=== PATIENT | female | born 1940 | race Caucasian/White ===

== ENCOUNTER 2017-02-13 08:53 | Inpatient (IN) | payer OTHER, BC ==
[2017-02-13] VITALS: BP 121/58
[~2017-02-13] VITALS: Ht 154.9 cm; Wt 82.6 kg
[~2017-02-13 08:53] MED LIST: ARTHROTEC 751 TABLET PO; ASCORBIC ACID500 M3 PO; Aspirin E.C. PO; BACLOFEN10 MG PO; CITRACAL D + H1 EACH PO; CITRACAL PLUS1 EAC1 PO; CYTOTEC200 MCG PO; Citracal Maximum (Ca PO; Cytotec PO; DOCUPRENE100 MG PO; DURAGESIC12 MCG TD; FLONASE16 G1 BOTH NARES; FOLIC ACID1 MG PO; FOSAMAX40 MG PO; HEPARIN SO5000 UNITS SC; MIRALAX17 GM PO; Mag-Ox PO; NEURONTIN600 MG PO; NIFEDIPINE ER60 MG PO; NON-ASPIRIN EX500 MG PO; NORCO 7.5/321 TABLET PO; OXAYDO5 MG PO; OxyCONTIN PO; PRILOSEC40 MG PO; PROTONIX40 MG PO; Percocet 7.5/325,End PO; SENNA8.6 MG PO; SYNTHROID125 MCG PO; SYNTHROID137 MCG PO; THERAGRAN1 TABLET PO; Theragran PO; ULTRAM50 MG PO; Ultram PO; VICODIN 5-5001 EACH PO; VITAMIN B COMP1 EACH PO; VITAMIN D2000 UNIT PO; VYTORIN 10-201 EACH PO; Valium PO; Voltaren PO; ZANAFLEX4 MG PO; Zocor PO
[2017-02-13 16:38] VITALS: BP 130/60
[2017-02-13] MEDS ORDERED: TYLENOL REGULA325 MG PO (16:58)
[2017-02-13] MEDS ORDERED: FLEXERIL5 MG PO (17:00)
[2017-02-13] MEDS ORDERED: NEURONTIN100 MG PO (17:01)
[2017-02-13] MEDS ORDERED: MICROZIDE12.5 M1 PO (17:02)
[2017-02-13] MEDS ORDERED: HEPARIN SO5000 UNITS SC (17:02)
[2017-02-13] MEDS ORDERED: ROXICODONE5 MG PO (17:03)
[2017-02-13] MEDS ORDERED: LO-DOSE ASPIRIN81 M2 PO (17:05)
[2017-02-13] MEDS ORDERED: VITAMIN B122500 MCG SL (17:07)
[2017-02-13] MEDS ORDERED: HYZAAR 50-121 TABLET PO (17:08)
[2017-02-13] MEDS ORDERED: CYTOTEC200 MCG PO (17:10)
[2017-02-13] MEDS ORDERED: THERATRUM COMP1 EAC1 PO (17:12)
[2017-02-13] MEDS ORDERED: RESTASIS 01 DROP/0.4 BOTH EYES (17:13)
[2017-02-13] MEDS ORDERED: WOMEN'S LAXATIVE5 M1 PO (17:58)
[2017-02-13] MEDS ORDERED: NOVOLOG PE100 UNITS/ SC (18:05)
[2017-02-13 22:23] LABS: POINT-OF-CARE METER ID UU14174215
[2017-02-14 04:49] VITALS: BP 152/65
[2017-02-14 06:00] LABS: HEMATOCRIT 23.3 % (36.0-46.0); MCH 29.2 PG (29.0-34.0); MCHC 32.6 G/DL (30.0-36.0); MCV 89.6 FL (83-99); MEAN PLAT.VOLUME 9.5 uM^3 (9.5-12.4); PLATELET COUNT 313 K/uL (156-360); RBC DIS.WIDTH-CV 14.7 % (11.8-14.6); WHITE BLOOD COUNT 5.8 K/uL (4.1-10.2)
[2017-02-14 06:57] LABS: ALKALINE PHOSPHATASE 73 IU/L (3-129); ANION GAP 9 MEQ/L (2-14); CHLORIDE 97 MEQ/L (99-109); GFR ESTIMATE (CALCULATED) > 59 mL/min/; GLUCOSE 112 mg/dL (70-99); POTASSIUM 3.8 MEQ/L (3.7-5.4); SAMPLE HEMOLYSIS CHECK 0; SAMPLE ICTERIC CHECK 0; SAMPLE LIPEMIA CHECK 0; SODIUM 136 MEQ/L (136-147); TOTAL BILIRUBIN 0.4 MG/DL (0.0-1.0); UREA NITROGEN (BUN) 8 mg/dL (9-23)
[2017-02-14 07:52] LABS: POINT-OF-CARE METER ID UU14174215
[2017-02-14 11:13] LABS: POINT-OF-CARE METER ID UU14174215
[2017-02-14 15:10] VITALS: BP 117/53; BP 121/68
[2017-02-14 16:16] LABS: POINT-OF-CARE METER ID UU14174215
[2017-02-14 21:08] LABS: POINT-OF-CARE METER ID UU14174215
[2017-02-15 06:07] VITALS: BP 119/56
[2017-02-15 06:40] LABS: POINT-OF-CARE METER ID UU14174215; POINT-OF-CARE USER ID ENVGAF
[2017-02-15 11:12] LABS: POINT-OF-CARE METER ID UU14174215
[2017-02-15 12:09] LABS: HEMATOCRIT 27.5 % (36.0-46.0); MCH 28.8 PG (29.0-34.0); MCV 89.9 FL (83-99); MEAN PLAT.VOLUME 9.1 uM^3 (9.5-12.4); PLATELET COUNT 405 K/uL (156-360); RED BLOOD COUNT 3.06 M/uL (3.80-5.20)
[2017-02-15 15:02] VITALS: BP 134/65
[2017-02-15 16:17] LABS: POINT-OF-CARE METER ID UU14174215
[2017-02-15 21:24] LABS: POINT-OF-CARE METER ID UU13113720
[2017-02-16 05:33] VITALS: BP 113/55
[2017-02-16 06:47] LABS: POINT-OF-CARE METER ID UU14174215; POINT-OF-CARE USER ID ENVGAF
[2017-02-16 07:04] LABS: HEMATOCRIT 24.8 % (36.0-46.0); MCH 28.9 PG (29.0-34.0); MCHC 31.9 G/DL (30.0-36.0); MCV 90.8 FL (83-99); MEAN PLAT.VOLUME 9.4 uM^3 (9.5-12.4); PLATELET COUNT 414 K/uL (156-360); RBC DIS.WIDTH-CV 14.8 % (11.8-14.6); RBC DIS.WIDTH-SD 48.6 % (39-53); RED BLOOD COUNT 2.73 M/uL (3.80-5.20)
[2017-02-16 11:18] LABS: POINT-OF-CARE METER ID UU14174215
[2017-02-16 15:16] VITALS: BP 105/57
[2017-02-16 16:14] LABS: POINT-OF-CARE METER ID UU14174215
[2017-02-16 21:24] LABS: POINT-OF-CARE METER ID UU14174215
[2017-02-17 04:36] VITALS: BP 116/58
[2017-02-17 07:14] LABS: POINT-OF-CARE METER ID UU14174215
[2017-02-17 11:46] LABS: POINT-OF-CARE METER ID UU14174215
[2017-02-17 15:36] VITALS: BP 125/60
[2017-02-17 16:38] LABS: POINT-OF-CARE METER ID UU13113720
[2017-02-17 21:14] LABS: POINT-OF-CARE METER ID UU13113720
[2017-02-18] VITALS: BP 127/61
[2017-02-18 04:37] VITALS: BP 104/56
[2017-02-18 07:25] LABS: POINT-OF-CARE METER ID UU13113720
[2017-02-18 11:19] LABS: POINT-OF-CARE METER ID UU13113720; POINT-OF-CARE USER ID AHSSSJB31
[2017-02-18 15:00] VITALS: BP 110/59
[2017-02-18 16:35] LABS: POINT-OF-CARE METER ID UU13113720
[2017-02-18 21:27] LABS: POINT-OF-CARE METER ID UU13113720
[2017-02-19 06:11] VITALS: BP 111/55
[2017-02-19 06:45] LABS: HEMATOCRIT 26.3 % (36.0-46.0); MCH 28.6 PG (29.0-34.0); MCHC 31.2 G/DL (30.0-36.0); MCV 91.6 FL (83-99); MEAN PLAT.VOLUME 8.8 uM^3 (9.5-12.4); PLATELET COUNT 506 K/uL (156-360); RBC DIS.WIDTH-CV 15.1 % (11.8-14.6); RBC DIS.WIDTH-SD 48.2 % (39-53); RED BLOOD COUNT 2.87 M/uL (3.80-5.20); WHITE BLOOD COUNT 6.1 K/uL (4.1-10.2)
[2017-02-19 07:07] LABS: POINT-OF-CARE METER ID UU13113720
[2017-02-19 07:17] LABS: ANION GAP 11 MEQ/L (2-14); CHLORIDE 100 MEQ/L (99-109); GFR ESTIMATE (CALCULATED) > 59 mL/min/; GLUCOSE 98 mg/dL (70-99); POTASSIUM 4.3 MEQ/L (3.7-5.4); SAMPLE HEMOLYSIS CHECK 0; SAMPLE ICTERIC CHECK 0; SAMPLE LIPEMIA CHECK 0; SODIUM 139 MEQ/L (136-147); UREA NITROGEN (BUN) 11 mg/dL (9-23)
[2017-02-19 11:17] LABS: POINT-OF-CARE METER ID UU13113720
[2017-02-19] MEDS ORDERED: ZOCOR40 MG PO (11:50)
[2017-02-19 15:23] VITALS: BP 109/53
[2017-02-20 05:04] VITALS: BP 114/57
[2017-02-20 15:21] VITALS: BP 113/75; BP 116/61
[2017-02-21 05:32] VITALS: BP 120/58
[2017-02-21 06:02] LABS: HEMATOCRIT 26.5 % (36.0-46.0); MCH 29.5 PG (29.0-34.0); MCHC 31.7 G/DL (30.0-36.0); MEAN PLAT.VOLUME 8.9 uM^3 (9.5-12.4); PLATELET COUNT 528 K/uL (156-360); RBC DIS.WIDTH-CV 15.7 % (11.8-14.6); RBC DIS.WIDTH-SD 50.8 % (39-53); RED BLOOD COUNT 2.85 M/uL (3.80-5.20)
[2017-02-21 06:50] LABS: ANION GAP 9 MEQ/L (2-14); CHLORIDE 98 MEQ/L (99-109); GFR ESTIMATE (CALCULATED) > 59 mL/min/; GLUCOSE 103 mg/dL (70-99); POTASSIUM 3.8 MEQ/L (3.7-5.4); SAMPLE HEMOLYSIS CHECK 0; SAMPLE ICTERIC CHECK 0; SAMPLE LIPEMIA CHECK 0; SODIUM 136 MEQ/L (136-147); UREA NITROGEN (BUN) 14 mg/dL (9-23)
[2017-02-21] MEDS ORDERED: FOLIC ACID1 MG PO (09:00)
[2017-02-21] MEDS ORDERED: FERROUS SULFAT325 MG PO (09:00)
[2017-02-21] MEDS ORDERED: BACLOFEN10 MG PO (09:00)
[2017-02-21] MEDS ORDERED: LIDOCAINE700 MG TD (09:00)
[2017-02-21] MEDS ORDERED: ROXICODONE5 MG PO (09:00)
[2017-02-21] MEDS ORDERED: NEURONTIN100 MG PO (09:00)
[2017-02-21] MEDS ORDERED: Chronulac,Cephulac,E PO (09:00)
== END 2017-02-21 14:16 | disposition home health service (06) | DRG 949 ==
LOC: 3WEST 08:53
PROVIDERS: Physical Medicine & Rehabilitation Pain Medicine
PROC: F07M0ZZ Range of Motion and Joint Mobility Treatment of Musculoskeletal System - Whole Body (ICD-10-PCS; principal; 2017-02-13)
DX: Z48.89 Encounter for other specified surgical aftercare (principal); I10 Essential (primary) hypertension; E78.5 Hyperlipidemia, unspecified; E03.9 Hypothyroidism, unspecified; K21.9 Gastro-esophageal reflux disease without esophagitis; G89.4 Chronic pain syndrome; Z98.1 Arthrodesis status; M81.0 Age-related osteoporosis without current pathological fracture; H91.90 Unspecified hearing loss, unspecified ear; D62 Acute posthemorrhagic anemia; K57.90 Diverticulosis of intestine, part unspecified, without perforation or abscess without bleeding; M19.90 Unspecified osteoarthritis, unspecified site; R53.1 Weakness; M48.04 Spinal stenosis, thoracic region; Z96.652 Presence of left artificial knee joint; G89.18 Other acute postprocedural pain; G56.00 Carpal tunnel syndrome, unspecified upper limb
CPT/HCPCS: 80048; 80053; 82948; 85027; 86900; 86901; 86920; 97110 GO; 97530 GP; J1644; J1815

== ENCOUNTER → 2017-08-19 | Outpatient (CLI) | payer OTHER, BC ==
[~2017-08-19] MED LIST changes: +Chronulac,Cephulac,E PO; +FERROUS SULFAT325 MG PO; +FLEXERIL5 MG PO; +HYZAAR 50-121 TABLET PO; +LIDOCAINE700 MG TD; +LO-DOSE ASPIRIN81 M2 PO; +MICROZIDE12.5 M1 PO; +NEURONTIN100 MG PO; +NOVOLOG PE100 UNITS/ SC; +RESTASIS 01 DROP/0.4 BOTH EYES; +ROXICODONE5 MG PO; +THERATRUM COMP1 EAC1 PO; +TYLENOL REGULA325 MG PO; +VITAMIN B122500 MCG SL; +WOMEN'S LAXATIVE5 M1 PO; +ZOCOR40 MG PO
== END | disposition home or self-care (01) ==
DX: R26.2 Difficulty in walking, not elsewhere classified (principal); M25.561 Pain in right knee; M25.661 Stiffness of right knee, not elsewhere classified; M62.81 Muscle weakness (generalized); M17.11 Unilateral primary osteoarthritis, right knee
CPT/HCPCS: 97161 GP; 97530 GP; G8978 GP; G8979 GP; G8980 GP

== ENCOUNTER 2017-10-05 22:03 | Inpatient (IN) | payer OTHER, BC ==
[~2017-10-05] VITALS: Ht 154.9 cm; Wt 76.2 kg
[~2017-10-05 22:03] MED LIST changes: +CITRACAL-VIT D1 EACH PO; +LIORESAL10 MG PO; +NEURONTIN300 MG PO; +PRILOSEC20 MG PO; -PRILOSEC40 MG PO; +VICODIN 5-3001 EACH PO; +VOLTAREN75 MG PO
[2017-10-06 10:04] VITALS: BP 148/67
[2017-10-06 14:28] LABS: HEMATOCRIT 34.3 % (36.0-46.0); MCH 30.6 PG (29.0-34.0); MCHC 32.1 G/DL (30.0-36.0); MCV 95.5 FL (83-99); RBC DIS.WIDTH-CV 12.6 % (11.8-14.6); RBC DIS.WIDTH-SD 44.2 % (39-53); RED BLOOD COUNT 3.59 M/uL (3.80-5.20); WHITE BLOOD COUNT 5.2 K/uL (4.1-10.2)
[2017-10-06 14:35] LABS: PLATELET COUNT 206 K/uL (156-360)
[2017-10-06 16:23] VITALS: BP 117/59
[2017-10-06 19:52] VITALS: BP 137/68
[2017-10-07 00:08] VITALS: BP 132/62
[2017-10-07 04:00] VITALS: BP 165/63
[2017-10-07 06:05] LABS: HEMOGLOBIN 10.9 G/DL (11.9-15.5); MCV 93.7 FL (83-99)
[2017-10-07 06:27] LABS: CHLORIDE 100 MEQ/L (99-109); CREATININE 0.7 MG/DL (0.6-1.3); GFR ESTIMATE (CALCULATED) > 59 mL/min/; GLUCOSE 163 mg/dL (70-99); POTASSIUM 3.8 MEQ/L (3.7-5.4); SODIUM 135 MEQ/L (136-147); UREA NITROGEN (BUN) 16 mg/dL (9-23)
[2017-10-07 07:33] VITALS: BP 142/61
[2017-10-07 11:32] VITALS: BP 120/66
[2017-10-07 15:39] VITALS: BP 125/60
[2017-10-07 20:01] VITALS: BP 142/67
[2017-10-08] VITALS: BP 140/67
[2017-10-08 04:02] VITALS: BP 115/56
[2017-10-08 07:01] LABS: HEMATOCRIT 28.1 % (36.0-46.0); HEMOGLOBIN 9.4 G/DL (11.9-15.5); MCV 92.7 FL (83-99)
[2017-10-08 08:00] VITALS: BP 120/56
[2017-10-08] MEDS ORDERED: LOVENOX40 MG/0.4 SC (09:03)
[2017-10-08] MEDS ORDERED: ENDOCET 5-3251 EACH PO (09:03)
[2017-10-08] MEDS ORDERED: SENNA PLUS TAB1 EACH PO (09:03)
[2017-10-08 12:00] VITALS: BP 136/86
[2017-10-08 12:29] VITALS: BP 149/67
== END 2017-10-08 16:10 | DRG 470 ==
LOC: ENRESERV 22:03 → 2SOUTH 10-06 09:08 → 3WEST 10-06 16:05
PROVIDERS: Orthopaedic Surgery
PROC: 0SRC0J9 Replacement of Right Knee Joint with Synthetic Substitute, Cemented, Open Approach (ICD-10-PCS; principal; 2017-10-06)
DX: M17.11 Unilateral primary osteoarthritis, right knee (principal); D62 Acute posthemorrhagic anemia; E78.5 Hyperlipidemia, unspecified; I10 Essential (primary) hypertension; K21.9 Gastro-esophageal reflux disease without esophagitis; G89.29 Other chronic pain; M54.9 Dorsalgia, unspecified; H91.93 Unspecified hearing loss, bilateral; E03.9 Hypothyroidism, unspecified; K40.90 Unilateral inguinal hernia, without obstruction or gangrene, not specified as recurrent; Z98.1 Arthrodesis status; Z83.3 Family history of diabetes mellitus; Z82.49 Family history of ischemic heart disease and other diseases of the circulatory system
CPT/HCPCS: 73560; 80048; 85014; 85018; 85027; C1713; C1762; J0690; J1100; J1170; J1650; J2250; J2405; J2795; J7030; J7050; Q0175

== ENCOUNTER 2018-01-25 22:00 | Inpatient (IN) | payer OTHER, BC ==
[~2018-01-25] VITALS: Ht 152.4 cm; Wt 78.4 kg
[~2018-01-25 22:00] MED LIST changes: +ENDOCET 5-3251 EACH PO; +LOVENOX40 MG/0.4 SC; +SENNA PLUS TAB1 EACH PO
[2018-01-26 07:40] VITALS: BP 117/88
[2018-01-26 13:28] LABS: HEMATOCRIT 34.6 % (36.0-46.0); HEMOGLOBIN 11.4 G/DL (11.9-15.5); MCH 30.2 PG (29.0-34.0); MCHC 32.9 G/DL (30.0-36.0); MCV 91.8 FL (83-99); PLATELET COUNT 193 K/uL (156-360); RBC DIS.WIDTH-CV 12.8 % (11.8-14.6); RBC DIS.WIDTH-SD 42.8 % (39-53); RED BLOOD COUNT 3.77 M/uL (3.80-5.20); WHITE BLOOD COUNT 4.5 K/uL (4.1-10.2)
[2018-01-26 15:15] VITALS: BP 118/52
[2018-01-26 19:40] VITALS: BP 105/63
[2018-01-27 00:10] VITALS: BP 125/72
[2018-01-27 03:58] VITALS: BP 124/59
[2018-01-27 05:31] LABS: HEMOGLOBIN 10.3 G/DL (11.9-15.5); MCV 90.9 FL (83-99)
[2018-01-27 05:58] LABS: CHLORIDE 106 MEQ/L (99-109); CREATININE 0.8 MG/DL (0.6-1.3); GFR ESTIMATE (CALCULATED) > 59 mL/min/; GLUCOSE 129 mg/dL (70-99); SODIUM 140 MEQ/L (136-147); UREA NITROGEN (BUN) 16 mg/dL (9-23)
[2018-01-27 08:02] VITALS: BP 129/60
[2018-01-27 12:09] VITALS: BP 140/67
[2018-01-27 15:42] VITALS: BP 150/60
[2018-01-27 20:16] VITALS: BP 137/70
[2018-01-28 00:07] VITALS: BP 169/72
[2018-01-28 04:16] VITALS: BP 136/68
[2018-01-28 07:28] LABS: HEMATOCRIT 31.1 % (36.0-46.0); HEMOGLOBIN 10.2 G/DL (11.9-15.5); MCV 90.4 FL (83-99)
[2018-01-28 08:22] VITALS: BP 146/73
[2018-01-28] MEDS ORDERED: ENDOCET 5-3251 EACH PO (08:45)
[2018-01-28] MEDS ORDERED: LOVENOX40 MG/0.4 SC (08:45)
[2018-01-28] MEDS ORDERED: DOCUSATE SODIU100 MG PO (08:45)
[2018-01-28] MEDS ORDERED: CELECOXIB200 MG PO (08:45)
== END 2018-01-28 14:20 | DRG 468 ==
LOC: ENRESERV 22:00 → 2SOUTH 01-26 07:06 → ENRESERV 01-26 07:18 → 2SOUTH 01-26 08:46 → 3WEST 01-26 14:41 → 2SOUTH 01-26 14:56 → 3WEST 01-28 14:20
PROVIDERS: Orthopaedic Surgery
PROC: 0SPD0JZ Removal of Synthetic Substitute from Left Knee Joint, Open Approach (ICD-10-PCS; principal; 2018-01-26)
PROC: 0SRD0J9 Replacement of Left Knee Joint with Synthetic Substitute, Cemented, Open Approach (ICD-10-PCS; principal; 2018-01-26)
DX: T84.063A Wear of articular bearing surface of internal prosthetic left knee joint, initial encounter (principal); T84.093A Other mechanical complication of internal left knee prosthesis, initial encounter; Y83.1 Surgical operation with implant of artificial internal device as the cause of abnormal reaction of the patient, or of later complication, without mention of misadventure at the time of the procedure; Y79.2 Prosthetic and other implants, materials and accessory orthopedic devices associated with adverse incidents; M17.12 Unilateral primary osteoarthritis, left knee; I10 Essential (primary) hypertension; E78.5 Hyperlipidemia, unspecified; K21.9 Gastro-esophageal reflux disease without esophagitis; G89.29 Other chronic pain; M54.9 Dorsalgia, unspecified; M81.0 Age-related osteoporosis without current pathological fracture; E03.9 Hypothyroidism, unspecified; K44.9 Diaphragmatic hernia without obstruction or gangrene; Z85.828 Personal history of other malignant neoplasm of skin; Z96.651 Presence of right artificial knee joint; Z98.1 Arthrodesis status; Z83.3 Family history of diabetes mellitus
CPT/HCPCS: 73560; 80048; 85014; 85018; 85027; 86850; 86900; 86901; 94799; C1713; C1776; J0131; J0690; J1100; J1650; J1885; J2405; J2795; J3010; J7050; Q0175; S0020

== ENCOUNTER 2018-03-06 20:04 | Inpatient (IN) | payer OTHER, BC ==
[~2018-03-06] VITALS: Ht 154.9 cm; Wt 76.1 kg
[~2018-03-06 20:04] MED LIST changes: +CELECOXIB200 MG PO; +DOCUSATE SODIU100 MG PO
[2018-03-06 21:00] LABS: BASOPHIL (%) 0.3 % (0-1); EOSINOPHIL (%) 3.4 % (0-5); EOSINOPHIL COUNT 0.2 K/uL (0-0.3); HEMATOCRIT 32.9 % (36.0-46.0); IMMATURE GRANULOCYTE (%) 0.3 % (0.0-0.7); LYMPHOCYTE (%) 18.2 % (15-42); LYMPHOCYTE COUNT 1.3 K/uL (1.0-2.8); MCHC 33.4 G/DL (30.0-36.0); MCV 92.7 FL (83-99); MONOCYTE (%) 8.2 % (3-12); MONOCYTE COUNT 0.6 K/uL (0-0.8); NEUTROPHIL (%) 69.6 % (45-76); NEUTROPHIL COUNT 4.8 K/uL (1.8-6.4); PLATELET COUNT 207 K/uL (156-360); RBC DIS.WIDTH-CV 13.4 % (11.8-14.6); RBC DIS.WIDTH-SD 46.1 % (39-53); RED BLOOD COUNT 3.55 M/uL (3.80-5.20); WHITE BLOOD COUNT 6.9 K/uL (4.1-10.2)
[2018-03-06 21:12] LABS: CHLORIDE 104 mEq/L (99-109); POTASSIUM 3.8 mEq/L (3.7-5.4); SODIUM 139 mEq/L (136-147)
[2018-03-06 21:14] LABS: GLUCOSE 121 mg/dL (70-99)
[2018-03-06 21:18] LABS: CREATININE 0.9 mg/dL (0.6-1.3); GFR ESTIMATE (CALCULATED) > 59 mL/min/
[2018-03-06 21:19] LABS: UREA NITROGEN (BUN) 24 mg/dL (9-23)
[2018-03-06] MEDS ORDERED: LOVENOX40 MG/0.4 SC (22:06)
[2018-03-06] MEDS ORDERED: DICLOFENAC SODI75 MG PO (22:09)
[2018-03-06] MEDS ORDERED: VITAMIN B122500 MCG PO (22:10)
[2018-03-06] MEDS ORDERED: ASCORBIC ACID100 MG PO (22:10)
[2018-03-06] MEDS ORDERED: ULTRAM50 MG PO (22:10)
[2018-03-07 01:08] LABS: ERTH.SED.RATE 32 MM/HR (0-30)
[2018-03-07 01:42] LABS: C-REACTIVE PROTEIN 60.5 MG/L (0-10)
[2018-03-07 03:02] VITALS: BP 128/65
[2018-03-07 05:00] VITALS: BP 111/58
[2018-03-07 07:00] VITALS: BP 123/78
[2018-03-07 11:00] VITALS: BP 137/63
[2018-03-07 15:02] VITALS: BP 135/63
[2018-03-07 20:17] VITALS: BP 112/59
[2018-03-08 00:01] VITALS: BP 134/68
[2018-03-08 08:01] VITALS: BP 154/69
[2018-03-08 17:10] VITALS: BP 113/54
[2018-03-09 00:09] VITALS: BP 133/66
[2018-03-09 07:50] VITALS: BP 125/60
[2018-03-09 16:05] VITALS: BP 118/56
[2018-03-09 23:00] VITALS: BP 121/69
[2018-03-10 07:26] VITALS: BP 138/65
[2018-03-10 15:26] VITALS: BP 143/64
[2018-03-10 20:03] LABS: HEMATOCRIT 31.2 % (36.0-46.0); HEMOGLOBIN 9.7 G/DL (11.9-15.5); MCH 29.6 PG (29.0-34.0); MCHC 31.1 G/DL (30.0-36.0); MCV 95.1 FL (83-99); PLATELET COUNT 236 K/uL (156-360); RBC DIS.WIDTH-SD 45.1 % (39-53); RED BLOOD COUNT 3.28 M/uL (3.80-5.20); WHITE BLOOD COUNT 5.3 K/uL (4.1-10.2)
[2018-03-10 20:40] VITALS: BP 149/67
[2018-03-10 23:08] VITALS: BP 141/67
[2018-03-11 04:16] VITALS: BP 96/52
[2018-03-11 06:20] LABS: HEMATOCRIT 27.3 % (36.0-46.0); HEMOGLOBIN 8.8 G/DL (11.9-15.5); MCV 93.8 FL (83-99)
[2018-03-11 06:36] LABS: CHLORIDE 103 MEQ/L (99-109); CREATININE 0.6 MG/DL (0.6-1.3); GFR ESTIMATE (CALCULATED) > 59 mL/min/; GLUCOSE 116 mg/dL (70-99); POTASSIUM 3.6 MEQ/L (3.7-5.4); SODIUM 136 MEQ/L (136-147); UREA NITROGEN (BUN) 9 mg/dL (9-23)
[2018-03-11 07:16] VITALS: BP 103/52
[2018-03-11 11:28] VITALS: BP 118/57
[2018-03-11 15:39] VITALS: BP 112/59
[2018-03-11 23:45] VITALS: BP 126/57
[2018-03-12 07:01] LABS: HEMATOCRIT 28.1 % (36.0-46.0); HEMOGLOBIN 9.1 G/DL (11.9-15.5); MCV 94.3 FL (83-99)
[2018-03-12 08:27] VITALS: BP 121/61
[2018-03-12 16:28] VITALS: BP 111/53
[2018-03-12 23:48] VITALS: BP 115/56
[2018-03-13 07:37] VITALS: BP 117/65
[2018-03-13] MEDS ORDERED: DOCUSATE SODIU100 MG PO (08:26)
[2018-03-13] MEDS ORDERED: LOVENOX40 MG/0.4 SC (08:27)
== END 2018-03-13 16:06 | disposition home or self-care (01) | DRG 486 ==
LOC: EME 20:04 → EDOF 03-07 00:50 → 3EAST 03-07 00:50 → ENRESERV 03-07 01:10 → 3EAST 03-07 02:43
PROVIDERS: Orthopaedic Surgery; Orthopaedic Surgery Sports Medicine; Physician Assistant
PROC: 3E1U38Z Irrigation of Joints using Irrigating Substance, Percutaneous Approach (ICD-10-PCS; principal; 2018-03-10)
PROC: 0SPD09Z Removal of Liner from Left Knee Joint, Open Approach (ICD-10-PCS; principal; 2018-03-10)
PROC: 0SUW09Z Supplement Left Knee Joint, Tibial Surface with Liner, Open Approach (ICD-10-PCS; principal; 2018-03-10)
PROC: 0JDP0ZZ Extraction of Left Lower Leg Subcutaneous Tissue and Fascia, Open Approach (ICD-10-PCS; principal; 2018-03-10)
DX: T84.54XA Infection and inflammatory reaction due to internal left knee prosthesis, initial encounter (principal); T81.31XA Disruption of external operation (surgical) wound, not elsewhere classified, initial encounter; L03.116 Cellulitis of left lower limb; T81.83XA Persistent postprocedural fistula, initial encounter; E03.9 Hypothyroidism, unspecified; E78.00 Pure hypercholesterolemia, unspecified; E78.5 Hyperlipidemia, unspecified; I10 Essential (primary) hypertension; K21.9 Gastro-esophageal reflux disease without esophagitis; B96.89 Other specified bacterial agents as the cause of diseases classified elsewhere; Z96.653 Presence of artificial knee joint, bilateral; M25.462 Effusion, left knee; M25.562 Pain in left knee; R60.9 Edema, unspecified; Z82.49 Family history of ischemic heart disease and other diseases of the circulatory system
CPT/HCPCS: 73560; 73564; 76937; 80048; 82948; 83605; 85014; 85018; 85025; 85027; 85651; 86140; 87040; 87070; 87075; 87076; 87205; 93971; 97530 GP; 99281; 99285; C1776; J0690; J0696; J1170; J1650; J2270; J2405; J2543; J3010; J3370; J7030